=== PATIENT | male | born 1970 | race African-American/Black ===

== ENCOUNTER 2019-05-13 12:08 | Emergency (ER) | payer BC ==
[~2019-05-13] VITALS: Ht 188 cm; Wt 99.8 kg
--- NOTE | 2019-05-13 12:16 | NUR ---
NOTED LEFT FACIAL NUMBNESS AND LEFT SHOULDER PAIN UPON WAKING UP AT 0630. CP LEFT SIDE RADIATES TO BACK. SOME NUMBNESS IN LEFT SIDE OF FACE AND DOWN LEG. PAIN IS STABBING UPON TAKING DEEP BREATHS, 3/10 AND TOLERABLE. NO ACUTE DISTRESS NOTED. READY FOR EVAL.
--- NOTE | 2019-05-13 12:22 | NUR ---
AT BEDSIDE FOR EVAL.
--- NOTE | 2019-05-13 12:51 | NUR ---
Patient discharged to home in stable condition. Written and verbal after care instructions given. Patient verbalizes understanding of instruction.
[2019-05-13 12:52] VITALS: BP 126/78
== END 2019-05-13 12:52 | disposition home or self-care (01) ==
LOC: ER 12:09
DX: F41.9 Anxiety disorder, unspecified (principal); F12.90 Cannabis use, unspecified, uncomplicated; Z60.2 Problems related to living alone